=== PATIENT | male | born 1975 | race African-American/Black ===

== ENCOUNTER 2024-02-04 23:56 | Emergency (ER) | payer MEDICAID ==
[~2024-02-04] VITALS: Ht 175.3 cm; Wt 79.4 kg
[2024-02-05 00:22] VITALS: TEMP 99
[2024-02-05] MEDS ORDERED: KETOROLAC TROMETHAMINE 15 MG/ML VIAL ONE (00:53)
[2024-02-05] MEDS ORDERED: CYCLOBENZAPRINE 10 MG TABLET ONE (00:53)
[2024-02-05] MEDS: CYCLOBENZAPRINE 10 MG TABLET PO ONE (00:58)
[2024-02-05] MEDS: KETOROLAC TROMETHAMINE 15 MG/ML VIAL IM ONE (00:58)
[2024-02-05] MEDS ORDERED: KETO10TA2 PO (02:10)
[2024-02-05] MEDS ORDERED: CYCL10TA9 PO (02:10)
[2024-02-05 02:23] VITALS: BP 107/81; O2SAT 100
== END 2024-02-05 02:25 | disposition home or self-care (01) ==
LOC: ER 02-05 00:02
DX: M25.552 Pain in left hip (principal); M25.512 Pain in left shoulder; R51.9 Headache, unspecified; Z91.018 Allergy to other foods; V43.52XA Car driver injured in collision with other type car in traffic accident, initial encounter; Y93.89 Activity, other specified; Y92.488 Other paved roadways as the place of occurrence of the external cause; Y99.8 Other external cause status
CPT/HCPCS: 99285; 70450; 96372; 73503; J1885; 73502

== ENCOUNTER 2025-03-19 20:26 | Emergency (ER) | payer SELFPAY ==
[~2025-03-19] VITALS: Ht 172.7 cm; Wt 86.2 kg
[~2025-03-19 20:26] MED LIST: CYCL10TA9 PO; KETO10TA2 PO
[2025-03-19] MEDS ORDERED: KETOROLAC TROMETHAMINE INJ 30 MG/ML VIAL ONE (21:02)
[2025-03-19] MEDS ORDERED: ONDANSETRON HCL/PF 4 MG/2 ML VIAL ONE (21:02)
[2025-03-19 21:05] LABS: BASOPHILS % (AUTO) 0.2 % (0.0-2.0); EOSINOPHILS # (AUTO) 0.1 K/uL (0.0-0.7); EOSINOPHILS % (AUTO) 1.7 % (0.0-6.0); HEMATOCRIT 41 % (39-51); HEMOGLOBIN 13.8 g/dL (13.5-17.5); LYMPHOCYTES # (AUTO) 1.6 K/uL (0.8-4.8); LYMPHOCYTES % (AUTO) 29.1 % (20.0-44.0); MEAN CORPUSCULAR HEMOGLOBIN 30 PG (26.0-33.0); MEAN CORPUSCULAR HGB CONC 33 g/dl (31.0-36.0); MEAN CORPUSCULAR VOLUME 91 fL (80-96); MONOCYTES # (AUTO) 0.7 K/uL (0.1-1.30); PLATELET COUNT (AUTO) 318 K/uL (150-450); RED BLOOD CELL COUNT(AUTO) 4.53 MIL/uL (4.5-6.0); RED CELL DISTRIBUTION WIDTH 13.1 % (11.5-15.0); WHITE BLOOD COUNT (AUTO) 5.4 K/uL (4.3-11.0)
[2025-03-19] MEDS: IV NS 0.9% 1,000 ML BAG IV ONE (21:17)
[2025-03-19] MEDS: ONDANSETRON HCL/PF 4 MG/2 ML VIAL IVP ONE (21:18)
[2025-03-19] MEDS: KETOROLAC TROMETHAMINE 15 MG/ML VIAL IV ONE (21:18)
[2025-03-19 21:48] LABS: CREATININE 3.2 mg/dL (0.6-1.3); POTASSIUM 4.1 mmol/L (3.5-5.1)
[2025-03-19 21:57] LABS: ALBUMIN 3.6 g/dL (3.4-5.0); BILIRUBIN,DIRECT 0.2 mg/dL (0.0-0.2); BILIRUBIN,TOTAL 0.7 mg/dL (0.2-1.0); TOTAL PROTEIN, SERUM 7.5 g/dL (6.4-8.2)
[2025-03-20] MEDS ORDERED: MECLIZINE HCL 12.5 MG TABLET ONE (01:10)
[2025-03-20] MEDS: MECLIZINE HCL 12.5 MG TABLET PO ONE (01:13)
[2025-03-20] MEDS ORDERED: METOCLOPRAMIDE HCL 10 MG/2 ML VIAL ONE (01:49)
[2025-03-20] MEDS ORDERED: ACETAMINOPHEN 325 MG TABLET ONE (01:49)
[2025-03-20] MEDS: METOCLOPRAMIDE HCL 10 MG/2 ML VIAL IV ONE (01:53)
[2025-03-20] MEDS: ACETAMINOPHEN 325 MG TABLET PO ONE (01:53)
[2025-03-20] MEDS ORDERED: MECL-159 PO (02:42)
[2025-03-20] MEDS ORDERED: FAMO-131 PO (02:42)
[2025-03-20 02:52] VITALS: BP 135/88; TEMP 211.1; O2SAT 98
== END 2025-03-20 02:52 | disposition home or self-care (01) ==
LOC: ER 20:34
DX: R10.84 Generalized abdominal pain (principal); R42 Dizziness and giddiness; R11.0 Nausea; R07.9 Chest pain, unspecified; Z91.018 Allergy to other foods
CPT/HCPCS: 99285; 70450; 96374; 71045; 96361; 96375 ×2; 74176; 85025; 80048; 83690; 80076; 36415; J1885; J2405; J7030; J8597; J2765